=== PATIENT | female | born 1945 | race Caucasian/White ===

== ENCOUNTER → 2018-07-20 | Outpatient (CLI) | payer MEDICARE ==
[~2018-07-20] MED LIST: NEB TX; Z EXFORGE; Z.0.CELEXA20 MG PO
--- NOTE | 2018-07-20 17:51 | Diagnostic Imaging Report ---
EXAM: CHEST 2 VIEWS, PA and lateral DATE: 07/20/2018 Time stamp on exam: 2:14 PM INDICATION: CHF COMPARISON: None FINDINGS: LINES/TUBES: None LUNGS: Diffuse mild alveolar pulmonary edema. PLEURA: No effusions or pneumothorax. HEART AND MEDIASTINUM: Heart is enlarged. BONES AND SOFT TISSUES: No acute findings. IMPRESSION: Cardiomegaly with pulmonary alveolar edema. Signed by: Dr. Anant Martin DO on 07/20/2018 5:47 PM
== END ==
LOC: RAD 13:53
PROVIDERS: ATTEND Internal Medicine
DX: R06.00 Dyspnea, unspecified (principal); I50.32 Chronic diastolic (congestive) heart failure
CPT/HCPCS: 71046

== ENCOUNTER → 2023-10-01 | Outpatient (REF) | payer MEDICARE | LOC: RAD 13:48 | PROVIDERS: ATTEND Internal Medicine | DX: I50.32 Chronic diastolic (congestive) heart failure (principal); I11.0 Hypertensive heart disease with heart failure | CPT/HCPCS: 93306 ==